=== PATIENT | female | born 1985 | race Caucasian/White ===

== ENCOUNTER 2021-01-13 16:03 | Emergency (ER) | payer MEDICAID ==
[2021-01-13 16:15] VITALS: BP 119/80
--- NOTE | 2021-01-13 19:25 | Emergency Department Report ---
ED HPI - General Chief complaint: Abdominal Pain Stated complaint: CRAMPING AND BLEEDING Time Seen by Provider: 01/13/21 16:49 Source: patient Mode of arrival: Ambulatory Limitations: No Limitations - History of Present Illness Initial comments: Patient is a 35-year-old F [place] female who is presenting with some spotting. Patient states that last menstrual period was sometime at the end of November. Patient took a test yesterday at a clinic which confirmed that she was . First took a test approximately 4 days ago from her drugstore which also had a faint line present. Patient states she has some mild lower abdominal cramping and spotting. States there is no clots. Denies syncope's nausea vomiting diarrhea cough cold congestion at this time. - Related Data Allergies Allergy/AdvReac Type Severity Reaction Status Date / Time No Known Allergies Allergy Verified 01/13/21 16:12 ED Review of Systems ROS: Stated complaint: CRAMPING AND BLEEDING Other details as noted in HPI Comment: All other systems reviewed and negative ED Past Medical Hx - Past Medical History Previous Medical History?: No - Surgical History Past Surgical History?: No ED Physical Exam - General Limitations: No Limitations General appearance: alert, in no apparent distress - Head Head exam: Present: atraumatic, normocephalic - Eye Eye exam: Present: normal appearance - ENT ENT exam: Present: normal orophraynx, mucous membranes moist - Neck Neck exam: Present: normal inspection - Respiratory Respiratory exam: Present: normal lung sounds bilaterally. Absent: respiratory distress, wheezes, rales, rhonchi - Cardiovascular Cardiovascular Exam: Present: regular rate, normal rhythm, normal heart sounds. Absent: systolic murmur, diastolic murmur, rubs, gallop - GI/Abdominal GI/Abdominal exam: Present: soft, normal bowel sounds. Absent: distended, tenderness, guarding, rebound - Extremities Exam Extremities exam: Present: normal inspection - Back Exam Back exam: Present: normal inspection - Neurological Exam Neurological exam: Present: alert, oriented X3 - Psychiatric Psychiatric exam: Present: normal affect, normal mood - Skin Skin exam: Present: warm, dry, intact, normal color. Absent: rash ED Course Vital Signs 01/13/21 16:14 Temperature 98.7 F Pulse Rate 57 L Respiratory 16 Rate Blood Pressure 119/80 [Left] O2 Sat by Pulse 100 Oximetry ED Medical Decision Making - Lab Data Lab Results 01/13/21 Range/Units 16:59 HCG, Quant 47.74 H (0-4) mIU/mL - Medical Decision Making Patient with a quant 47. Because the patient first took a test a week ago and has not had a. Which was normal for approximately 5weeks patient likely is having a early miscarriage. Because this is the patient's first quant patient is been advised to get a additional blood test in approximately a week. This will confirm whether the patient is having a miscarriage or some abnormal bleeding and early . Critical care attestation.: If time is entered above; I have spent that time in minutes in the direct care of this critically ill patient, excluding procedure time. ED Disposition Clinical Impression: Threatened miscarriage in early Disposition: 01 HOME / SELF CARE / HOMELESS Is pt being admited?: No Does the pt Need Aspirin: No Condition: Stable Instructions: Abdominal Pain (ED), Threatened Miscarriage Additional Instructions: Your beta quant was 47 today. Please follow-up with additional blood test in approximately a week. If this number has decreased down to 0 he confirms miscarriage. If this number is increasing it does signify that she have a viable . Time of Disposition: 19:25
--- NOTE | 2021-01-13 19:43 | Ultrasound Report ---
ULTRASOUND OBSTETRIC INDICATION / CLINICAL INFORMATION: preg with abd pain/bleeding. Clinical Gestational Age (GA) in weeks, days: Unknown TECHNIQUE: Transabdominal. Endovaginal COMPARISON: None available. FINDINGS: Uterus: Uterus is mildly enlarged and retroverted. The uterine parenchyma is heterogeneous but there is no visible gestational sac within the uterus. Small amount of fluid is within the endometrium but no defined gestational sac is present. No major complex measures approximately 1.0 cm. The uterus measures 7.4 x 6.9 x 4.7 cm. ADNEXA: No significant abnormality. The ovaries are well-visualized and appear unremarkable. FREE FLUID: None. ADDITIONAL FINDINGS: None. IMPRESSION: 1. No visible gestational sac at this time. It is more than likely too early within the giv en the hCG level, for visualization of a gestational sac. Or alternatively, the patient has experienc ed spontaneous . Clinical correlation is recommended. Signer Name: Wilma Casillas MD Signed: 01/13/2021 7:39 PM Workstation Name: [id number]
--- NOTE | 2021-03-22 04:15 | Ultrasound Report ---
ULTRASOUND OBSTETRIC REASON FOR EXAM: PAIN TECHNIQUE: Transabdominal and transvaginal ultrasound was performed to evaluate a first trimester pre gnancy. COMPARISON: None available. FINDINGS: FINDINGS: Small intrauterine gestational sac with double decidual sign noted. Mean sac diameter measures 9 mm, corresponding to gestational age of 5 weeks and 5 days. No yolk sac or pole is identified that time. There is tiny perigestational hemorrhage involving less than half the circumference of the gest ational sac. MATERNAL FINDINGS: The uterus demonstrates an otherwise unremarkable sonographic appearance. The right ovary demonstrates a normal sonographic appearance. The left ovary demonstrates a normal sonographic appearance. Cul-de-sac: There is no free fluid. IMPRESSION: Small intrauterine gestational sac with measurements corresponding to a gestational age of 5 weeks an d 5 days. No yolk sac or pole is identified this time, likely related to early gestational age. In a hemodynamically stable patient, recommend follow-up with pelvic ultrasound in 7-10 days. There is a tiny perigestational hemorrhage which may account for vaginal bleeding. Signer Name: Balwinder Chavarria MD Signed: 03/22/2021 4:11 AM Workstation Name: [id number]
--- NOTE | 2021-03-22 04:21 | Ultrasound Report ---
ULTRASOUND RENAL INDICATION / CLINICAL INFORMATION: PAIN; HX STONES. COMPARISON: None available. FINDINGS: RIGHT KIDNEY: Size (in cm): 10.6 - Echogenicity: Normal. - Cortical Thickness: Normal. - Hydronephrosis: None. - Cyst or mass: No significant abnormality. - Stones: None seen. LEFT KIDNEY: Size (in cm): 8.5 - Echogenicity: Normal. - Cortical Thickness: Normal. - Hydronephrosis: Mild - Cyst or mass: No significant abnormality. - Stones: None seen. URINARY BLADDER: Left ureteral jet is seen. Bladder is unremarkable. FREE FLUID: None. ADDITIONAL FINDINGS: None. IMPRESSION: 1. Nonspecific mild left hydronephrosis. No discrete obstruction is identified. 2. Unremarkable sonographic appearance of the right kidney. Signer Name: Balwinder Chavarria MD Signed: 03/22/2021 4:17 AM Workstation Name: [id number]
== END 2021-01-13 19:42 | disposition home or self-care (01) ==
LOC: ED 16:03
DX: O20.0 Threatened abortion (principal); Z3A.01 Less than 8 weeks gestation of pregnancy; Z79.899 Other long term (current) drug therapy
CPT/HCPCS: 36415; 76801; 76817; 84702; 86900; 86901; 99284

== ENCOUNTER 2021-03-22 01:17 | Emergency (ER) | payer MEDICAID ==
[2021-03-22] MEDS ORDERED: SODIUM CHLORIDE 0.9% 1000 ML 1,000 ML ONE (02:10)
[2021-03-22] MEDS ORDERED: ONDANSETRON 4 MG/2 ML INJ ONE (02:10)
--- NOTE | 2021-03-22 06:40 | Emergency Department Report ---
<ALEX ARZOLA - Last Filed: 03/22/21 07:19> ED Abdominal Pain HPI - General Time Seen by Provider: 03/22/21 05:57 - History of Present Illness Initial Comments: Patient is a 36-year-old -Citizen Of The [place] female with history of bilateral renal stones. Patient states left flank pain radiating suprapubic x1 week. Patient was treated in January 2021 for spontaneous . Patient states last menstrual cycle was 3 weeks ago. There is no fevers no chills no no nausea or vomiting however there is 5/10 left flank pain. Pain is exacerbated by voiding. There is urinary frequency patient denies dysuria or hematuria. Patient denies concern for STI. There are no relieving factors. MD Complaint: flank pain - Related Data Previous Rx's Medication Instructions Recorded Last Taken Type Acetaminophen/Codeine [Tylenol 1 tab PO Q6H PRN #12 tab 03/22/21 Unknown Rx /Codeine # 3 tab] Amoxicillin/Potassium Clav 1 each PO BID 10 Days #20 tablet 03/22/21 Unknown Rx [Augmentin 875-125 Tablet] Allergies Allergy/AdvReac Type Severity Reaction Status Date / Time No Known Allergies Allergy Verified 01/13/21 16:12 ED Review of Systems Constitutional: malaise. denies: chills, fever Eyes: denies: eye pain, eye discharge, vision change ENT: denies: ear pain, throat pain Respiratory: denies: cough, shortness of breath, wheezing Cardiovascular: denies: chest pain, palpitations Endocrine: no symptoms reported Gastrointestinal: abdominal pain, nausea. denies: vomiting, diarrhea, constipation, melena Genitourinary: urgency, frequency. denies: dysuria, hematuria, discharge Musculoskeletal: back pain (Left flank) Skin: denies: rash, lesions Neurological: denies: headache, weakness, paresthesias Psychiatric: denies: anxiety, depression Hematological/Lymphatic: denies: easy bleeding, easy bruising ED Past Medical Hx - Medications Home Medications: Home Medications Medication Instructions Recorded Confirmed Last Taken Type Acetaminophen/Codeine [Tylenol 1 tab PO Q6H PRN #12 tab 03/22/21 Unknown Rx /Codeine # 3 tab] Amoxicillin/Potassium Clav 1 each PO BID 10 Days #20 tablet 03/22/21 Unknown Rx [Augmentin 875-125 Tablet] ED Physical Exam - General General appearance: alert, in no apparent distress - Head Head exam: Present: atraumatic, normocephalic - Eye Eye exam: Present: normal appearance, EOMI Pupils: Present: normal accommodation - ENT ENT exam: Present: mucous membranes moist - Neck Neck exam: Present: normal inspection, full ROM. Absent: tenderness - Respiratory Respiratory exam: Present: normal lung sounds bilaterally. Absent: respiratory distress, wheezes, stridor - Cardiovascular Cardiovascular Exam: Present: regular rate, normal rhythm, normal heart sounds. Absent: systolic murmur, diastolic murmur, rubs, gallop - GI/Abdominal GI/Abdominal exam: Present: soft, normal bowel sounds. Absent: distended, tenderness, guarding, rebound, rigid, bruit, hernia - Rectal Rectal exam: Present: deferred - Extremities Exam Extremities exam: Present: normal inspection, full ROM - Back Exam Back exam: Present: full ROM, CVA tenderness (L). Absent: CVA tenderness (R) - Neurological Exam Neurological exam: Present: alert, oriented X3, CN II-XII intact, normal gait - Psychiatric Psychiatric exam: Present: normal affect, normal mood - Skin Skin exam: Present: warm, dry, intact, normal color. Absent: rash ED Medical Decision Making - Lab Data Result diagrams: 03/22/21 06:46 - Radiology Data Radiology results: report reviewed, image reviewed ULTRASOUND RENAL INDICATION / CLINICAL INFORMATION: PAIN; HX STONES. COMPARISON: None available. FINDINGS: RIGHT KIDNEY: Size (in cm): 10.6 - Echogenicity: Normal. - Cortical Thickness: Normal. - Hydronephrosis: None. - Cyst or mass: No significant abnormality. - Stones: None seen. LEFT KIDNEY: Size (in cm): 8.5 - Echogenicity: Normal. - Cortical Thickness: Normal. - Hydronephrosis: Mild - Cyst or mass: No significant abnormality. - Stones: None seen. URINARY BLADDER: Left ureteral jet is seen. Bladder is unremarkable. FREE FLUID: None. ADDITIONAL FINDINGS: None. IMPRESSION: 1. Nonspecific mild left hydronephrosis. No discrete obstruction is identified. 2. Unremarkable sonographic appearance of the right kidney. Signer Name: Balwinder Chavarria MD Signed: 03/22/2021 4:17 AM Workstation Name: [id number] cc: ALEX ARZOLA NP ULTRASOUND OBSTETRIC REASON FOR EXAM: PAIN TECHNIQUE: Transabdominal and transvaginal ultrasound was performed to evaluate a first trimester . COMPARISON: None available. FINDINGS: FINDINGS: Small intrauterine gestational sac with double decidual sign noted. Mean sac diameter measures 9 mm, corresponding to gestational age of 5 weeks and 5 days. No yolk sac or pole is identified that time. There is tiny perigestational hemorrhage involving less than half the circumference of the gestational sac. MATERNAL FINDINGS: The uterus demonstrates an otherwise unremarkable sonographic appearance. The right ovary demonstrates a normal sonographic appearance. The left ovary demonstrates a normal sonographic appearance. Cul-de-sac: There is no free fluid. IMPRESSION: Small intrauterine gestational sac with measurements corresponding to a gestational age of 5 weeks and 5 days. No yolk sac or pole is identified this time, likely related to early gestational age. In a hemodynamically stable patient, recommend follow-up with pelvic ultrasound in 7-10 days. There is a tiny perigestational hemorrhage which may account for vaginal bleeding. Signer Name: Balwinder Chavarria MD Signed: 03/22/2021 4:11 AM Workstation Name: [id number] ED Disposition Clinical Impression: UTI (urinary tract infection) during Qualifiers: Trimester: first trimester Qualified Code(s): O23.41 - Unspecified infection of urinary tract in , first trimester Disposition: HOME / SELF CARE / HOMELESS Condition: Stable Instructions: Pyelonephritis During , First Trimester of Additional Instructions: Take medications as prescribed, follow-up with [facility] in 2 to 3 days. Return to emergency department should symptoms worsen. Hydrate as directed. Prescriptions: Amoxicillin/Potassium Clav [Augmentin 875-125 Tablet] 1 each PO BID 10 Days #20 tablet Acetaminophen/Codeine [Tylenol /Codeine # 3 tab] 1 tab PO Q6H PRN #12 tab PRN Reason: Pain , Severe (7-10) Referrals: GAVIN MURO MD [Staff Physician] - 3-5 Days [facility] [Provider Group] - 3-5 Days [facility] [Provider Group] - 3-5 Days Forms: Work/School Release Form(ED) <AURORA AG - Last Filed: 03/22/21 16:35> ED Review of Systems ROS: Stated complaint: Other details as noted in HPI ED Course Vital Signs 03/22/21 03/22/21 08:35 10:10 Temperature 97.8 F 98.4 F Pulse Rate 69 79 Respiratory 18 15 Rate Blood Pressure 96/57 Blood Pressure 124/76 [Right] O2 Sat by Pulse 100 100 Oximetry ED Medical Decision Making - Lab Data Result diagrams: 03/22/21 06:46 03/22/21 06:46 Lab Results 03/22/21 03/22/21 03/22/21 Range/Units 06:46 06:46 06:46 WBC 6.7 (4.5-11.0) K/mm3 RBC 3.84 (3.65-5.03) M/mm3 Hgb 10.7 (10.1-14.3) gm/dl Hct 32.9 (30.3-42.9) % MCV 86 (79-97) fl MCH 28 (28-32) pg MCHC 32 (30-34) % RDW 12.9 L (13.2-15.2) % Plt Count 194 (140-440) K/mm3 Lymph % (Auto) 13.6 (13.4-35.0) % Terrell % (Auto) 5.9 (0.0-7.3) % Eos % (Auto) 4.2 (0.0-4.3) % Baso % (Auto) 0.5 (0.0-1.8) % Lymph # (Auto) 0.9 L (1.2-5.4) K/mm3 Terrell # (Auto) 0.4 (0.0-0.8) K/mm3 Eos # (Auto) 0.3 (0.0-0.4) K/mm3 Baso # (Auto) 0.0 (0.0-0.1) K/mm3 Seg Neutrophils % 75.8 H (40.0-70.0) % Seg Neutrophils # 5.1 (1.8-7.7) K/mm3 Sodium 136 L (137-145) mmol/L Potassium 4.3 (3.6-5.0) mmol/L Chloride 105.4 (98-107) mmol/L Carbon Dioxide 23 (22-30) mmol/L Anion Gap 12 mmol/L BUN 9 (7-17) mg/dL Creatinine 0.5 L (0.6-1.2) mg/dL Estimated GFR > 60 ml/min BUN/Creatinine Ratio 18 % Glucose 99 (65-100) mg/dL Calcium 8.2 L (8.4-10.2) mg/dL Total Bilirubin 0.20 (0.1-1.2) mg/dL AST 18 (5-40) units/L ALT 16 (7-56) units/L Alkaline Phosphatase 40 (35-129) units/L Total Protein 6.4 (6.3-8.2) g/dL Albumin 3.6 L (3.9-5) g/dL Albumin/Globulin Ratio 1.3 % HCG, Quant 4698 H (0-4) mIU/mL Urine Color (Yellow) Urine Turbidity (Clear) Urine pH (5.0-7.0) Ur Specific Douglas (1.003-1.030) Urine Protein (Negative) mg/dL Urine Glucose (UA) (Negative) mg/dL Urine Ketones (Negative) mg/dL Urine Blood (Negative) Urine Nitrite (Negative) Ur Reducing Substances Urine Bilirubin (Negative) Urine Ictotest Urine Urobilinogen (<2.0) mg/dL Ur Leukocyte Esterase (Negative) Urine WBC (Auto) (0.0-6.0) /HPF Urine RBC (Auto) (0.0-6.0) /HPF U Epithel Cells (Auto) (0-13.0) /HPF Urine HCG, Qual (Negative) 03/22/21 Range/Units Unknown WBC (4.5-11.0) K/mm3 RBC (3.65-5.03) M/mm3 Hgb (10.1-14.3) gm/dl Hct (30.3-42.9) % MCV (79-97) fl MCH (28-32) pg MCHC (30-34) % RDW (13.2-15.2) % Plt Count (140-440) K/mm3 Lymph % (Auto) (13.4-35.0) % Terrell % (Auto) (0.0-7.3) % Eos % (Auto) (0.0-4.3) % Baso % (Auto) (0.0-1.8) % Lymph # (Auto) (1.2-5.4) K/mm3 Terrell # (Auto) (0.0-0.8) K/mm3 Eos # (Auto) (0.0-0.4) K/mm3 Baso # (Auto) (0.0-0.1) K/mm3 Seg Neutrophils % (40.0-70.0) % Seg Neutrophils # (1.8-7.7) K/mm3 Sodium (137-145) mmol/L Potassium (3.6-5.0) mmol/L Chloride (98-107) mmol/L Carbon Dioxide (22-30) mmol/L Anion Gap mmol/L BUN (7-17) mg/dL Creatinine (0.6-1.2) mg/dL Estimated GFR ml/min BUN/Creatinine Ratio % Glucose (65-100) mg/dL Calcium (8.4-10.2) mg/dL Total Bilirubin (0.1-1.2) mg/dL AST (5-40) units/L ALT (7-56) units/L Alkaline Phosphatase (35-129) units/L Total Protein (6.3-8.2) g/dL Albumin (3.9-5) g/dL Albumin/Globulin Ratio % HCG, Quant (0-4) mIU/mL Urine Color Straw (Yellow) Urine Turbidity Clear (Clear) Urine pH 8.0 H (5.0-7.0) Ur Specific Douglas 1.010 (1.003-1.030) Urine Protein 100 mg/dl (Negative) mg/dL Urine Glucose (UA) Neg (Negative) mg/dL Urine Ketones Neg (Negative) mg/dL Urine Blood Mod (Negative) Urine Nitrite Neg (Negative) Ur Reducing Substances Not Reportable Urine Bilirubin Neg (Negative) Urine Ictotest Not Reportable Urine Urobilinogen < 2.0 (<2.0) mg/dL Ur Leukocyte Esterase Mod (Negative) Urine WBC (Auto) 110.0 H (0.0-6.0) /HPF Urine RBC (Auto) 79.0 (0.0-6.0) /HPF U Epithel Cells (Auto) 2.0 (0-13.0) /HPF Urine HCG, Qual Positive A (Negative) - Medical Decision Making Patient handed off to me by GURU Miranda pending urinalysis. Uri nalysis shows elevated WBCs. Patient is approximately 5 weeks . Ultrasound is negative for any obvious kidney stone, however there is mild left hydronephrosis. She is afebrile and nontachycardic on initial and repeat vitals. Patient is well-appearing and her pain is controlled with Tylenol/codeine. Patient is stable for discharge home. Extended treatment of Augmentin given for Severiano. Discussed in great detail with patient signs and symptoms that should prompt immediate return to the ED, she verbalizes understanding. She is to follow-up with OB in 2 to 3 days. Discuss[address] patient with Dr. Eleazar Chase who agrees with disposition and plan of care. Critical care attestation.: If time is entered above; I have spent that time in minutes in the direct care of this critically ill patient, excluding procedure time. ED Disposition Is pt being admited?: No
[2021-03-22] MEDS ORDERED: cefTRIAXone/NS 1 GM/50 ML 1 GM/50 ML BAG IV ONE (06:47)
[2021-03-22 07:12] LABS: Basophils % (Auto) 0.5 % (0.0-1.8); Eosinophils # (Auto) 0.3 K/mm3 (0.0-0.4); Eosinophils % (Auto) 4.2 % (0.0-4.3); Hematocrit 32.9 % (30.3-42.9); Hemoglobin 10.7 gm/dl (10.1-14.3); Lymphocytes # (Auto) 0.9 K/mm3 (1.2-5.4); Lymphocytes % (Auto) 13.6 % (13.4-35.0); Mean Corpuscular HGB Conc 32 % (30-34); Mean Corpuscular Volume 86 fl (79-97); Monocytes # (Auto) 0.4 K/mm3 (0.0-0.8); Monocytes % (Auto) 5.9 % (0.0-7.3); Platelet Count 194 K/mm3 (140-440); Red Blood Count 3.84 M/mm3 (3.65-5.03); Red Cell Distribution Width 12.9 % (13.2-15.2)
[2021-03-22 07:33] LABS: Alanine Aminotransferase 16 units/L (7-56); Albumin 3.6 g/dL (3.9-5); Blood Urea Nitrogen 9 mg/dL (7-17); Calcium 8.2 mg/dL (8.4-10.2); Hemolysis Index 10
[2021-03-22 07:53] LABS: BUN/Creatinine Ratio 18
[2021-03-22 09:28] LABS: HCG Qualitative,Urine Positive (Negative)
[2021-03-22 09:45] LABS: Bilirubin,Urine NEG (Negative); Blood,Urine MOD (Negative); Color,Urine Straw (Yellow); Urobilinogen,Urine < 2.0 mg/dL (<2.0)
[2021-03-22] MEDS ORDERED: ACETAMINOPHEN W/CODEINE 300-30 MG TAB PO ONE (10:10)
[2021-03-22 10:11] VITALS: BP 124/76
== END 2021-03-22 11:23 | disposition home or self-care (01) ==
LOC: ED 01:17
DX: O23.41 Unspecified infection of urinary tract in pregnancy, first trimester (principal); Z3A.01 Less than 8 weeks gestation of pregnancy
CPT/HCPCS: 36415; 76770; 76801; 80053; 81001; 81025; 84702; 85025; 96365; 99283; J0696; J2405; J7030; Q0162

== ENCOUNTER 2021-05-01 03:14 | Emergency (ER) | payer MEDICAID ==
[2021-05-01 05:11] LABS: Basophils % (Auto) 0.6 % (0.0-1.8); Eosinophils # (Auto) 0.2 K/mm3 (0.0-0.4); Eosinophils % (Auto) 3.2 % (0.0-4.3); Hematocrit 28.2 % (30.3-42.9); Hemoglobin 9.3 gm/dl (10.1-14.3); Lymphocytes # (Auto) 2.5 K/mm3 (1.2-5.4); Lymphocytes % (Auto) 48.8 % (13.4-35.0); Mean Corpuscular HGB Conc 33 % (30-34); Mean Corpuscular Volume 84 fl (79-97); Monocytes # (Auto) 0.4 K/mm3 (0.0-0.8); Monocytes % (Auto) 7.5 % (0.0-7.3); Platelet Count 248 K/mm3 (140-440); Red Blood Count 3.34 M/mm3 (3.65-5.03)
--- NOTE | 2021-05-01 06:57 | Ultrasound Report ---
OB ultrasound INDICATION: Bleeding FINDINGS: Right ovary is not visualized. Left ovary appears normal. Gestational sac is seen within th e cervical canal measuring 26.2 cm. This measures 7 weeks 4 days. Uterus measures 7.7 x 4.8 x 5.6 cm. Endometrium is thickened measuring 14 mm IMPRESSION: Gestational sac is identified within the cervical canal measures 7 weeks 4 days. No pole or yol k sac is identified. Signer Name: Brandon Lee MD Signed: 05/01/2021 6:52 AM Workstation Name: [id number] [id number]
--- NOTE | 2021-05-01 07:12 | Emergency Department Report ---
ED General Adult HPI - General Chief complaint: Vaginal Bleeding Stated complaint: VAGINAL BLEEDING Time Seen by Provider: 05/01/21 06:16 Source: patient, EMS Mode of arrival: Stretcher Limitations: No Limitations - History of Present Illness Initial comments: Patient is a 36-year-old female 6 para 4 with 1 miscarriage. Patient presented to the ER complaining of lower abdominal pain, crampy in nature associated with vaginal bleeding. Patient stated that she is about 7 weeks . Patient denied any dizziness or shortness of breath. -: Last night Severity scale (0 -10): 4 Quality: other (Cramping) Consistency: intermittent Associated Symptoms: denies other symptoms Treatments Prior to Arrival: none - Related Data Previous Rx's Medication Instructions Recorded Last Taken Type Acetaminophen/Codeine [Tylenol 1 tab PO Q6H PRN #12 tab 03/22/21 Unknown Rx /Codeine # 3 tab] Amoxicillin/Potassium Clav 1 each PO BID 10 Days #20 tablet 03/22/21 Unknown Rx [Augmentin 875-125 Tablet] Allergies Allergy/AdvReac Type Severity Reaction Status Date / Time No Known Allergies Allergy Verified 01/13/21 16:12 ED Review of Systems ROS: Stated complaint: VAGINAL BLEEDING Other details as noted in HPI Comment: All other systems reviewed and negative Constitutional: denies: chills, fever Respiratory: denies: cough, shortness of breath, SOB with exertion Cardiovascular: denies: chest pain, palpitations Gastrointestinal: abdominal pain. denies: nausea, vomiting Neurological: denies: headache, weakness, numbness, paresthesias, confusion ED Past Medical Hx - Medications Home Medications: Home Medications Medication Instructions Recorded Confirmed Last Taken Type Acetaminophen/Codeine [Tylenol 1 tab PO Q6H PRN #12 tab 03/22/21 Unknown Rx /Codeine # 3 tab] Amoxicillin/Potassium Clav 1 each PO BID 10 Days #20 tablet 03/22/21 Unknown Rx [Augmentin 875-125 Tablet] ED Physical Exam - General Limitations: No Limitations General appearance: alert, in no apparent distress - Head Head exam: Present: atraumatic, normocephalic, normal inspection - Eye Eye exam: Present: normal appearance - ENT ENT exam: Present: normal exam, normal orophraynx, mucous membranes moist - Neck Neck exam: Present: normal inspection, full ROM. Absent: tenderness, meningismus - Respiratory Respiratory exam: Present: normal lung sounds bilaterally - Cardiovascular Cardiovascular Exam: Present: regular rate, normal rhythm, normal heart sounds - GI/Abdominal GI/Abdominal exam: Present: soft, normal bowel sounds. Absent: distended, tenderness, guarding, rebound, rigid, organomegaly, mass, bruit, pulsatile mass, hernia - Extremities Exam Extremities exam: Present: normal inspection, full ROM, normal capillary refill. Absent: tenderness, pedal edema, joint swelling, calf tenderness - Back Exam Back exam: Present: normal inspection, full ROM. Absent: CVA tenderness (R), CVA tenderness (L) - Neurological Exam Neurological exam: Present: alert, oriented X3, CN II-XII intact, normal gait, reflexes normal. Absent: motor sensory deficit - Psychiatric Psychiatric exam: Present: normal mood - Skin Skin exam: Present: warm, intact, normal color ED Course Vital Signs 05/01/21 05/01/21 05/01/21 04:21 04:39 08:38 Temperature 98.4 F 98.3 F Pulse Rate 64 61 Respiratory 18 16 Rate Blood Pressure 102/64 108/51 [Left] O2 Sat by Pulse 98 99 Oximetry 05/01/21 09:21 Temperature Pulse Rate 55 L Respiratory 9 L Rate Blood Pressure [Left] O2 Sat by Pulse 100 Oximetry ED Medical Decision Making - Lab Data Result diagrams: 05/01/21 04:57 - Radiology Data Radiology results: report reviewed - Medical Decision Making Patient is a 36-year-old female 6 para 4 with 1 miscarriage. Patient presented to the ER complaining of lower abdominal pain, crampy in nature associated with vaginal bleeding. Patient stated that she is about 7 weeks . Patient denied any dizziness or shortness of breath. Patient received normal saline, morphine and Zofran. ultrasound showed an empty uterus. Patient stated that she passed clots and tissues. Patient stated that she does not have any more bleeding. Patient is Rh- and she received RhoGam. Patient advised to follow-up with her OB doctor in the next 2 to 3 days and to return to the ER if she develop any new symptoms. Critical care attestation.: If time is entered above; I have spent that time in minutes in the direct care of this critically ill patient, excluding procedure time. ED Disposition Clinical Impression: Spontaneous miscarriage Disposition: HOME / SELF CARE / HOMELESS Is pt being admited?: No Condition: Stable Instructions: Miscarriage, [id number] Referrals: PRIMARY CARE,MD [Primary Care Provider] - 3-5 Days
[2021-05-01] MEDS ORDERED: ONDANSETRON 4 MG/2 ML INJ IV ONE (09:04)
[2021-05-01] MEDS ORDERED: SODIUM CHLORIDE 0.9% 1000 ML 1,000 ML IV ONE ×2 (09:04→12:27)
[2021-05-01] MEDS ORDERED: MORPHINE 2 MG/1 ML INJ IV ONE (09:04)
[2021-05-01] MEDS ORDERED: SODIUM CHLORIDE 0.9% 500 ML 500 ML ONE (12:10)
[2021-05-01 15:25] VITALS: BP 102/46
== END 2021-05-01 16:05 | disposition home or self-care (01) ==
LOC: ED 03:14
DX: O03.9 Complete or unspecified spontaneous abortion without complication (principal)
CPT/HCPCS: 36415; 76801; 84702; 85025; 85461; 86850; 86900; 86901; 96360; 96361; 96372; 99284; J2270; J2405; J2790; J7030; J7040; 36430; Q0162